=== PATIENT | male | born 1965 | race Caucasian/White ===

== ENCOUNTER 2019-01-02 15:01 | Emergency (ER) | payer MEDICAID ==
--- NOTE | 2019-01-02 15:08 | Emergency Department Record ---
History of Present Illness - General Chief Complaint: Chest Pain Stated Complaint: CHEST PAIN Time Seen by Provider: 01/02/19 15:04 Source: Patient Mode of Arrival: Ambulatory Limitations: No limitations - History of Present Illness Initial Comments: 53 yo male presents with a pain over the left flank and left lower chest. The onset was last night at 9pm. The symptoms have been constant since then. He states it is better if laying down and seemed more noticeable standing. No other activity or movement seems to make it better or worse. It is not really painful but just new to him. It was present when he went to bed and when he woke up and constant all day. It is not related to exertion. No shortness of breath. No pain with inspiration. No rash. He does have some tingling in his left fingers. No weakness or loss of strength or coordination. He denies any history of CAD. He does have HTN. Dr Otero is his PCP. No family history of early , SCD, premature CAD. Non smoker. MD Complaint: Chest pain, Other (Left flank pain) -: Hour(s) Onset: Other Pain Location: Left chest Pain Radiation: Other (left flank) Severity: Moderate Quality: Aching Consistency: Constant Improves With: Nothing Worsens With: Nothing - Related Data Home Medications Medication Instructions Recorded Confirmed Last Taken Multivitamin [Daily Multiple 1 each PO DAILY 01/02/19 01/02/19 01/02/19 Vitamin] Allergies Allergy/AdvReac Type Severity Reaction Status Date / Time No Known Drug Allergies Allergy Verified 01/02/19 15:11 Review of Systems Constitutional: Denies: Chills, Fever, Malaise, Weakness Eyes: Denies: Eye discharge ENT: Denies: Congestion, Throat pain Respiratory: Denies: Cough, Dyspnea, Hemoptysis, Stridor, Wheezes Cardiovascular: Reports: Chest pain. Denies: Dyspnea on exertion, Edema, Palpitations, Paroxysmal nocturnal dyspnea, Syncope Endocrine: Reports: Fatigue. Denies: Polydipsia, Polyuria Gastrointestinal: Denies: Abdominal pain, Diarrhea, Nausea, Vomiting Genitourinary: Denies: Dysuria, Frequency, Hematuria Musculoskeletal: Reports: Back pain (Left flank pain). Denies: Arthralgia, Myalgia, Neck pain Skin: Denies: Bruising, Change in color, Rash Neurological: Denies: Headache, Numbness, Weakness Psychiatric: Denies: Anxiety Hematological/Lymphatic: Denies: Easy bleeding, Easy bruising Physical Exam - General General Appearance: Alert, Oriented x3, Cooperative, No acute distress Limitations: No limitations - Head Head exam: Atraumatic, Normal inspection - Eye Eye exam: Normal appearance, PERRL. negative: Conjunctival injection, Scleral icterus - ENT ENT exam: Normal exam, Mucous membranes moist Ear exam: Normal external inspection Nasal Exam: Normal inspection Mouth exam: Normal external inspection - Neck Neck exam: Normal inspection, Full ROM - Respiratory Respiratory exam: Normal lung sounds bilaterally. negative: Accessory muscle use, Chest wall tenderness, Decreased breath sounds, Prolonged expiratory, Respiratory distress, Rhonchi, Stridor, Wheezes - Cardiovascular Cardiovascular Exam: Regular rate, Normal rhythm, Normal heart sounds. negative: Diastolic murmur, Irregular rhythm, Systolic murmur Peripheral Pulses: 2+: Radial (R), Radial (L) - GI/Abdominal GI/Abdominal exam: Soft. negative: Distended, Guarding, Tenderness - Rectal Rectal exam: Deferred - exam: Deferred - Extremities Extremities exam: Normal inspection. negative: Pedal edema, Tenderness - Back Back exam: Denies: CVA tenderness (R), CVA tenderness (L), Rash noted, Tenderness - Neurological Neurological exam: Alert, Oriented X3. negative: Altered - Psychiatric Psychiatric exam: Normal affect, Normal mood. negative: Agitated, Anxious Course - Reevaluation(s) Reevaluation #1: 01/02/19 15:09 EKG #1: 14:59 Rate: 73 Rhythm: sinus [place]: normal Intervals: normal ST segments: normal Prior: 02-17-2008 No changes Normal EKG 01/02/19 15:11 01/02/19 16:57 The labs were reviewed No acute changes The troponin is normal after symptoms constant since 9pm The D-dimer is negative 01/02/19 17:41 The UA is negative The CXR was reviewed. No acute abnormality I discussed with the patient the atypical symptoms with constant symptoms since 9pm yesterday with normal EKG. His HEART Score is low risk. He will be DC home with a referral to [facility] outpatient cardiology given his risk factor of HTN Medical Decision Making - Lab Data Result diagrams: 01/02/19 15:20 01/02/19 15:20 Disposition Disposition: Discharge Clinical Impression: Left flank pain, Atypical chest pain Disposition: Home, Self-Care Condition: (1) Good Instructions: Chest Pain (ED) Additional Instructions: Call your doctor for the next available follow up appointment You have also been referral to see a checkout supervisor at [facility] in the Specialty [facility] You will be contacted with an appointment time Review this ER visit and the tests performed with your family doctor Return to the ER for a recheck if worse, any new concerns or questions Take the prescriptions provided as directed Referrals: [facility] [Provider Group] Brian Dillon M.D. [MEDICAL DOCTOR] - Forms: Patient Portal Access Time of Disposition: 18:02 Quality - Quality Measures Quality Measures: N/A - Blood Pressure Screening Does Patient Have Any of the Following: Active Dx of HTN Blood Pressure Classification: Hypertensive Reading Systolic Measurement: 147 Diastolic Measurement: 90 Screening for High Blood Pressure: Patient Exclusion, Hx of HTN [[id number]]
[2019-01-02] MEDS ORDERED: ASPIRIN 81 MG CHEWABLE TABLET PO ONE (15:10)
[2019-01-02 15:43] LABS: ABSOLUTE NEUTROPHIL COUNT 4.75; EOS % 3.1 % (0-6); GRAN % 53.1 % (47-80); HEMATOCRIT 43.8 % (42.0-52.0); HEMOGLOBIN 14.9 gm/dl (14.0-18.0); LYMPH % 34.2 % (16-45); MEAN CELL VOLUME 88.3 fl (81-97); MONO % 8.6 % (0-9); PLATELET COUNT 264 K/uL (130-400); RED BLOOD COUNT 4.96 M/uL (4.40-5.70); RED CELL DISTRIBUTION WIDTH 13.2 % (11.5-14.5)
[2019-01-02 15:55] LABS: BLOOD UREA NITROGEN 19 mg/dL (6-20); CREATININE 0.9 mg/dL (0.7-1.2); EST GLOMERULAR FILTRATION RATE > 60 mL/min
[2019-01-02 15:56] LABS: TOTAL PROTEIN 6.9 g/dL (6.6-8.7)
[2019-01-02 15:57] LABS: PARTIAL THROMBOPLASTIN TIME 26.8 SECONDS (24.5-39.1)
[2019-01-02 15:58] LABS: GLUCOSE,RANDOM 90 mg/dL (74-109)
[2019-01-02 16:00] LABS: ALT/SGPT 22 U/L (<41); AST/SGOT 26 U/L (10.0-50.0)
[2019-01-02 16:01] LABS: ALB/GLOB RATIO 1.7 (1.1-1.8); ALBUMIN 4.3 g/dL (4.0-5.0); ALKALINE PHOSPHATASE 45 U/L (40-129)
[2019-01-02 17:12] LABS: URINE APPEARANCE CLEAR; URINE BILIRUBIN NEGATIVE (NEGATIVE); URINE BLOOD NEGATIVE (NEGATIVE); URINE COLOR YELLOW; URINE GLUCOSE (UA) NEGATIVE (NEGATIVE); URINE KETONE NEGATIVE (NEGATIVE); URINE LEUKOCYTE ESTERASE NEGATIVE (NEGATIVE); URINE NITRITE NEGATIVE (NEGATIVE); URINE PROTEIN NEGATIVE (NEGATIVE); URINE UROBILINOGEN 0.2 E.U./dL (0.20 - 1.00)
--- NOTE | 2019-01-05 17:31 | RADIOLOGY REPORT ---
EXAM: CHEST 2 VIEWS HISTORY: CHEST PAIN. TECHNIQUE: Two views of the chest. COMPARISON: No prior exams available for comparison. FINDINGS: The cardiomediastinal silhouette appears within normal limits. Lungs are clear, no focal consolidation, pneumothorax, or pleural effusion identified. IMPRESSION: NO ACUTE CARDIOPULMONARY PROCESS IDENTIFIED. JOB NUMBER: [id number] MTDD
== END 2019-01-02 18:08 | disposition home or self-care (01) ==
LOC: ER 15:01
DX: R07.89 Other chest pain (principal); R20.0 Anesthesia of skin; I10 Essential (primary) hypertension
CPT/HCPCS: 71046; 80053; 81003; 84484; 85025; 85379; 85610; 85730; 93005; 93010; 99284